=== PATIENT | female | born 1965 | race Caucasian/White ===

== ENCOUNTER 2016-10-31 10:29 | Emergency (ER) | payer BC ==
--- NOTE | 2016-10-31 11:03 | ERNOTE ---
Headache ER HPI - Narrative Date of Service: 10/31/16 - General Presenting Symptoms: "migraine" Time Seen by Provider: 10/31/16 11:01 Source: patient, RN notes reviewed Exam Limitations: no limitations - Immun/Allergies/Home Medications Allergies/Adverse Reactions: Allergies No Known Allergies Allergy (Verified 10/31/16 10:42) Home Medications: HOME MEDICATIONS Sulfasalazine 500 mg PO TID 02/06/14 [Last Taken Unknown] Calcium Carb & Citrate/Vit D3 [Calcium + D3 ER Tablet] 1 each PO DAILY 09/16/14 [Last Taken Unknown] Citalopram Hydrobromide [Celexa] 40 mg PO DAILY 09/16/14 [Last Taken Unknown] Etanercept [Enbrel] 25 mg SQ 2XW 09/16/14 [Last Taken Unknown] Hydroxychloroquine Sulfate [Plaquenil] 200 mg PO BID 09/16/14 [Last Taken Unknown] Naproxen [Naprosyn] 500 mg PO BID PRN 09/16/14 [Last Taken Unknown] predniSONE [Prednisone] 5 mg PO DAILY PRN 09/16/14 [Last Taken Unknown] - Pain Pain Score: 7 - History of Present Illness Narrative: 51 y/o female sent to the ED from the walk in clinic for a headache. Her pain began gradually this morning and worsened to the point where she had to leave work. She took Naproxen without improvement. She states she has had similar migraine headaches in the past, but they usually respond to medication and she does not have to seek treatment. She was tearful in the clinic and sent here because of the severity of her headache. Date (Duration): 10/31/16 Timing of Headache: gradual, still present, constant Context Headache: Present: new onset Quality: Present: achy Severity Maximum: Present: severe Severity-Currently: Present: severe Headache frequency: Present: occasional headaches Modifying Factors - (Improves): Denies: rest, medication Modifying Factors - (Worsens): Reports: exposure to light Associated Symptoms: Denies: fever/chills, nausea, vomiting, nasal congestion, nasal drainage, facial pain, fatigue, weakness, numbness/tingling, vision changes, confusion, light-headedness, dizziness, loss of consciousness, seizures , neck pain/stiffness, speech problems Exacerbated by:: Reports: light, noise. Denies: movement, position Prior Treament: Reports: similar symptoms before Review of Systems - Review of Systems Constitutional: Present: See HPI EYE: Absent: eye pain, eye discharge, vision changes ENT: Present: See HPI Respiratory: Absent: shortness of breath, cough Cardiology: Present: no symptoms reported Gastrointestinal/Abdominal: Present: See HPI Genitourinary: Present: no symptoms reported Musculoskeletal: Absent: muscle stiffness, neck pain Skin: Absent: rash, lesions Neurological: Present: See HPI Endocrine: Present: no symptoms reported Hematologic/Lymphatic: Present: no symptoms reported Psych: Present: no symptoms reported - Patient's Past Medical History Patient History - Medical: Anxiety, Arthritis, Chronic Pain, Diabetes Type 2, Depression, Rheumatoid Arthritis Patient History - Cardiac/Respiratory: No pertinent hx Patient History - Cancer: No Hx of Cancer Patient History - Surgical Procedures: Orthopedic - ankle, knee Patient History - Other: None - Social History Living Situations: home Psych History: Hx of Anxiety, Hx of Depression Smoking Status: Current every day smoker Cigarettes Packs Per Day: 1 Alcohol Use: none Drug Use: none Physical Exam - Physical Exam General Appearance: Present: wd/wn, alert, no apparent distress, anxious, other - appears uncomfortable Eye Exam: Normal inspection: bilateral, PERRL: bilateral, EOMI: bilateral Ears, Nose, Throat: Present: normal ENT inspection Neck: Present: normal inspection, nontender, supple, full range of motion Respiratory: Present: no respiratory distress, normal breath sounds, no accessory muscle use, lungs clear Cardiovascular/Chest: Present: regular rate, rhythm, no murmur, normal peripheral pulses Neurological Exam: Present: alert, oriented, normal mood/affect, no motor/ sensory deficits Skin Exam: Present: normal color, warm/dry ED Progress - Vital Signs Patient's Vital Signs:: I have reviewed the patient's vital signs. Vital Signs: Vital Signs 10/31/16 10:34 Temperature 36.1 C L Pulse Rate 81 Respiratory 12 Rate Blood Pressure 140/82 O2 Sat by Pulse 97 Oximetry - Progress/Reassessment Chief Complaint: Headache Progress:: Pain free at discharge Departure Clinical Impression: Migraine without aura Qualifiers: Status migrainosus presence: without status migrainosus Intractability: not intractable Qualified Code(s): G43.009 - Migraine without aura, not intractable , without status migrainosus - Departure Disposition: Home self-care Condition: Good Instructions: Migraine Headache, [id number], Form - Excuse from Work, School , or Physical Activity Additional Instructions: Rest today Continue your routine medications Follow up with your doctor as needed Referrals: Jose Flores MD [Primary Care Provider] -
[2016-10-31] MEDS ORDERED: METOCLOPRAMIDE HCL 5 MG/ML VIAL ONE (11:12)
[2016-10-31] MEDS ORDERED: KETOROLAC TROMETHAMINE 30 MG/ML VIAL ONE (11:12)
[2016-10-31] MEDS ORDERED: diphenhydrAMINE HCL 50 MG/ML VIAL ONE (11:12)
[2016-10-31] MEDS ORDERED: diphenhydrAMINE HCL 50 MG/ML VIAL IV ONE (11:13)
[2016-10-31] MEDS ORDERED: METOCLOPRAMIDE HCL 5 MG/ML VIAL IV ONE ×2 (11:13→11:14)
[2016-10-31] MEDS ORDERED: NORMAL SALINE 1,000 ML IV ONE (11:13)
[2016-10-31] MEDS ORDERED: KETOROLAC TROMETHAMINE 30 MG/ML VIAL IV ONE (11:13)
--- OUTSIDE RECORDS SUMMARY | 2016-10-31 11:17 | XMS REPORT | Continuity of Care Document ---
:1965 Author Organization [facility] ([facility]) Address [address] [place] [address] Phone [phone] Care Team Providers Name Role Phone MarkJose Primary Care Provider [phone] Source Comments This disclosure is being made pursuant to the Care Everywhere program, applicable federal and state laws, and may not contain all informaitonavailable regarding this patient.[facility] ([facility]) Active Allergies and Adverse Reactions No Known Allergies Current Medications Prescription Sig. Disp. Refills Start End Status Date Date CITALOPRAM 20 mg 02/29/20 Active tablet 14 cholecalciferol Take 1,000 Units Active (VITAMIN D3) 1,000 by mouth daily. unit tablet calcium carbonate (500 Take 1 Tab by Active mg Ca) 1250 mg mouth 3 times -vitamin D 200 unit daily. per tablet naproxen 500 mg tablet 2-3 TABS PER DAY 90 tablet 3 01/17/20 Active 16 leflunomide 20 mg Take 1 tablet (20 30 tablet 5 01/17/20 Active tablet mg total) by 16 mouth daily. adalimumab (HUMIRA) 40 Inject 0.8 mL (40 6 Syringe 1 07/18/20 Active mg/0.8 mL injection mg total) 16 syringe subcutaneously every 14 days. hydroxychloroquine 200 Take 1.5 tablets 45 tablet 5 10/29/19 Active mg tablet (300 mg total) by 17 mouth daily. sulfaSALAzine 500 mg Take 3 tablets 540 tablet 3 10/29/19 Active EC tablet (1,500 mg total) 17 by mouth 2 times daily. predniSONE 5 mg tablet Take 3 tablets 90 Tab 3 06/03/20 Discontinued daily for 10 13 017 days, 2 tablets daily 10 days, then 1.5 tab daily 10 days, then 1 tab daily ten days Indications: RA sulfaSALAzine 500 mg Take 3 tablets 180 tablet 11 01/17/20 Discontinued EC tablet (1,500 mg total) 16 017 by mouth 2 times daily. hydroxychloroquine 200 Take 1.5 tablets 45 tablet 5 07/18/20 Discontinued mg tablet (300 mg total) by 16 017 mouth daily. predniSONE 5 mg tablet Take 2 tablets 60 tablet 3 07/18/20 Discontinued (10 mg total) by 16 017 mouth daily. Active Problems Problem Noted Date Herniated lumbar disc without myelopathy 01/23/2015 Overview: 2014. Work related. Low back pain with sciatica 09/07/2014 Overview: 09/01. Films show DDD. Bunion 03/01/2014 Valgus foot 03/01/2014 Vitamin D deficiency 09/14/2013 Overview: 08/31 - . Biceps muscle strain 09/08/2013 Overview: Right 03/30 Smoking 01/25/2013 Encounter for long-term (current) use of other medications 04/17/2010 DM (diabetes mellitus) 04/17/2010 Overview: Dx 07/24 followed locally. Hand pain 01/26/2009 Rheumatoid arthritis(714.0) 02/10/2008 Overview: Dx 2007 - RF 429 and anti-CCP 90 Hand and foot films 2007 negative for erosions. nodules Meds: PLQ started 01/23 - 10/26. Restarted 09/30 - MTX started 02/22 and changed to SQ 10/24. D/c 10/26 nausea and no insurance . SSA started 05/26 - 10/26. Restarted 06/29 - Enbrel added 04/27 - 10/26. D/c due to no insurance coverage. Restarted 03/29. Changed to 25 mg twice a week 06/29 -08/01 Humira 08/01 - leflunomide 01/31 - Most Recent Encounters Date Type Specialty Providers Description 10/28/2016 Office Visit Pathology Phuong Florez ARNP Chief Comp: Patient Lab Services, Pfp Reported Reason For Visit 10/28/2016 Office Visit Med Rheumatology Default, Other Billg Dx: Vitamin D deficiency - Defo (Primary Dx) Castillo Hardy MD Burma, Molly, ARNP 09/09/2016 Telephone Med Rheumatology Phuong Florez ARNP Chief Comp: Need Prior Authorization Immunizations Name Dates Previously Given Next Due Influenza 05/30/2009 Influenza, quadrivalent PF 09/08/2013 Influenza, unspecified 06/16/2008 Pneumococcal Polysaccharide, PPSV23 (Pneumovax 23) 04/17/2010 Social History Tobacco Use Types Packs/Day Years Used Date Current Every Day Smoker 1 Smokeless Tobacco: Never Used Tobacco Cessation:Ready to Quit: No Comments: Alcohol Use Drinks/Week oz/Week Comments Yes 1/wk Last Filed Vital Signs Vital Sign Reading Time Taken Blood Pressure 139/86 10/28/2016 11:55 AM CDT Pulse 74 10/28/2016 11:55 AM CDT Temperature 36.3 C (97.3 F) 10/28/2016 11:11 AM CDT Respiratory Rate - - Height 1.626 m (5' 4.02") 07/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 Weight 89.6 kg (197 lb 8.5 oz) 10/28/2016 11:11 AM CDT Body Mass Index 33.89 10/28/2016 11:11 AM CDT Oxygen Saturation - - Plan of Care Date Type Specialty Providers Description 02/10/2017 Appointment Med Rheumatology Castillo Hardy MD [address] [place] [address] [phone] (Fax) Subj: Appointment Phuong Florez ARNP [address] [place] [address] [phone] (Fax) Scheduled 06/11/2017 Appointment Med Rheumatology Castillo Hardy MD Subj: Appointment [address] [place] [address] [phone] (Fax) Health Maintenance Due Date Last Done Comments Hepatitis B Vaccine (1 of 3 - Primary 1965 Series) Tdap Vaccine 1976 DIABETIC: Cholesterol 1983 Diabetic: Hdl 1983 DIABETIC: Hemoglobin A1C 1983 Diabetic: Ldl 1983 DIABETIC: Microalbumin 1983 DIABETIC: Triglycerides 1983 MMR Vaccine 1983 Td Vaccine 1983 Cervical Cancer Screening 1995 Mammogram 2005 DIABETIC: Foot Exam 01/29/2011 DIABETIC: Retinal Eye Exam 01/29/2011 Colonoscopy 2015 Influenza Vaccine: Seasonal (#1) 03/18/2016 09/08/2013, 05/30/2009, 06/16/2008 Pneumococcal Vaccine Completed 04/17/2010 HCV Screening Completed 01/17/2016, 12/23/2011 Results from Last 3 Months ASPARTATE AMINOTRANSFERASE (10/28/2016 11:58 AM) Component Value Range AST 20Comment: 0-32 U/L Adult reference ranges updated on 07/13/13 at 830am Specimen Blood ALBUMIN (10/28/2016 11:58 AM) Component Value Range Albumin 3.7 3.4-4.8 g/dL Specimen Blood C-REACTIVE PROTEIN (10/28/2016 11:58 AM) Component Value Range CRP (C-Reactive Protein) 0.9(H) <=0.5 mg/dL Specimen Blood ERYTHROCYTE SEDIMENTATION RATE (10/28/2016 11:58 AM) Component Value Range ESR (Erythrocyte Sedimentation Rate) 45(H) 0-20 mm/Hr Specimen Whole Blood CREATININE (10/28/2016 11:58 AM) Component Value Range Creatinine 0.6Comment: 0.5-1.0 mg/dL Creatinine switched to enzymatic method on 12/25/2010.GFR equation switched to IDMS-traceable MDRD equation on 12/25/2010. Calculated GFR values are not valid in clinical settings where serum creatinine is changing. Calculated GFR >90 >60 mL/min/1.73 m2 Specimen Blood ALANINE AMINOTRANSFERASE (10/28/2016 11:58 AM) Component Value Range ALT 18Comment: 0-33 U/L The upper limit of normal for alanine aminotransferase (ALT) reference ranges for adults is controversial with some authorities recommending limit as low as 30 U/L for males and 19 U/L for females. Th ere is increased incidence of subclinical liver disease (e.g., early steatohepatitis) in patients with ALT values in the range of 31-41 U/L for males and 20-33 U/L for females. ALT values should alway s be interpreted in conjunction with clinical history, physical examination findings, and, if applicable, data from other diagnostic tests. Specimen Blood CBC (COMPLETE BLOOD COUNT) (10/28/2016 11:58 AM) Component Value Range WBC Count 4.6 3.7-10.5 K/MM3 RBC Count 4.67 4.00-5.20 M/MM3 Hemoglobin 14.1 11.9-15.5 g/dL Hematocrit 43 35-47 % MCV (Mean Corpuscular Volume) 91 82-99 FL MCH (Mean Corpuscular Hemoglobin) 30 25-35 PG MCHC (Mean Corpuscular Hemoglobin Concentration) 33 32-36 % Platelet Count 246 150-400 K/MM3 MPV (Mean Platelet Volume) 10.8 9.4-12.3 FL RBC Dist Width-STD 43.2 36.4-46.3 FL RBC Distrib Width 12.9 9.0-14.5 % Nucleated RBC 0 /100 WBC Specimen Whole Blood VITAMIN D, 25-HYDROXY (10/28/2016 11:58 AM) Component Value Range Vitamin D, 25-OH 23Comment: 20-80 ng/mL This assay accurately quantifies the sum of 25-hydroxyvitamin D3 and 25- hydroxyvitamin D2. Endocrine Society, [place] [employer] (IOM), and World Health Organization (WHO) guidelines designate 25-h ydroxyvitamin D plasma concentrations below 20 ng/mL as deficient, based on increased frequency of adverse outcomes (e.g., osteoporotic fractures). 25-Hydroxyvitamin D reference ranges are a controversial topic, with some authorities suggesting optimal concentrations should be 30 ng/mL or higher based on correlations of 25-hydroxyvitamin D plasma concentrations with physiological parameters such as parathyroid hormone or calcium concentrations. However, optimal 25-hydroxyvitamin D concentrations greater than 20 ng/mL may be considered for specific disease conditions. Vitamin D toxicity is uncommon but may be seen at 25-hydroxyvitamin D concentrations greater than 150 ng/mL. Specimen Blood
[2016-10-31 13:39] VITALS: BP 129/79
== END 2016-10-31 12:15 | disposition home or self-care (01) ==
LOC: ER 10:29
DX: G43.009 Migraine without aura, not intractable, without status migrainosus (principal); F17.210 Nicotine dependence, cigarettes, uncomplicated; M19.90 Unspecified osteoarthritis, unspecified site

== ENCOUNTER 2017-03-17 12:49 | Emergency (ER) | payer BC ==
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
[2017-03-17] MEDS ORDERED: oxyCODONE HCL/ACETAMINOPHEN 1 TAB TABLET PO ONE (15:15)
[2017-03-17] MEDS ORDERED: oxyCODONE HCL/ACETAMINOPHEN 1 TAB TABLET ONE (15:25)
[2017-03-17 15:28] VITALS: BP 150/89
== END 2017-03-17 15:31 | disposition home or self-care (01) ==
LOC: ER 12:49
DX: S00.83XA Contusion of other part of head, initial encounter (principal); Y04.2XXA Assault by strike against or bumped into by another person, initial encounter; Y93.9 Activity, unspecified; Y92.9 Unspecified place or not applicable; F41.8 Other specified anxiety disorders; G89.29 Other chronic pain; E11.9 Type 2 diabetes mellitus without complications